=== PATIENT | male | born 1975 | race Caucasian/White ===

== ENCOUNTER → 2016-03-14 | Outpatient (CLI) | payer BC, OTHER | END | disposition home or self-care (01) | LOC: MMGSC 15:22 | PROVIDERS: ATTEND Family Medicine | DX: R30.0 Dysuria (principal); N39.0 Urinary tract infection, site not specified | CPT/HCPCS: 87086 ==

== ENCOUNTER → 2017-03-30 | Outpatient (CLI) | payer OTHER | END | disposition home or self-care (01) | LOC: MMGSC 10:56 | PROVIDERS: ATTEND Family Medicine | DX: J32.9 Chronic sinusitis, unspecified (principal) | CPT/HCPCS: 87070; 87077; 87186 ==

== ENCOUNTER → 2017-12-10 | Outpatient (CLI) | payer BC ==
--- NOTE | 2017-12-10 14:38 | MR ---
EXAMINATION TYPE: MR lumbar spine wo con DATE OF EXAM: 12/10/2017 COMPARISON: prior lumbar mri 10/03/2010 HISTORY: Low back pain TECHNIQUE: Multiplanar, multisequence images of the lumbar spine were acquired. L1-L2: Normal disc appearance without desiccation. No herniation, protrusion or disc bulging. No ca nal stenosis is present. Foramina are patent bilaterally. L2-L3: Normal disc appearance without desiccation. No herniation, protrusion or disc bulging. No ca nal stenosis is present. Foramina are patent bilaterally. L3-L4: Minimal posterior broad-based disc bulge causes only slight anterior mass effect on the thecal sac. There is mild facet arthropathy. No significant central stenosis or foraminal encroachment. L4-L5: There is a central posterior disc herniation causing anterior mass effect on the thecal sac, e xtension posterior to L5 vertebral body towards the left may contact the left L5 nerve root. This res ults in some mild central canal stenosis. Differential extension endplate disc complex encroaches mor e on the left neural foramen. There is some facet arthropathy with hypertrophy ligamentum flavum encr oaching on the posterior lateral thecal sac. L5-S1: Small posterior disc bulge causes mild anterior mass effect on the thecal sac as on prior exam , circumferential extension of endplate disc complex encroaches on the foramina as on prior. There is some facet arthropathy change. Lumbar segments are intact. No paraspinal masses are identified. Conus medullaris has a normal appe arance. There is loss of disc height signal at L4-5 and L5-S1 as on prior. Multilevel spondylosis wi th endplate discogenic marrow signal changes are again seen. IMPRESSION: Large disc herniation L4-5 as described, correlate for left L5 radiculopathy. Configuration is change d somewhat in the interval compared to prior exam. Multilevel facet arthropathy as described, additio nal findings above.
== END | disposition home or self-care (01) ==
LOC: RADMRIMAIN 12:41
PROVIDERS: ATTEND Family Medicine
DX: M48.061 Spinal stenosis, lumbar region without neurogenic claudication (principal); M51.26 Other intervertebral disc displacement, lumbar region; M47.816 Spondylosis without myelopathy or radiculopathy, lumbar region; M46.97 Unspecified inflammatory spondylopathy, lumbosacral region
CPT/HCPCS: 72148

== ENCOUNTER 2017-12-30 13:01 | Emergency (ER) | payer BC ==
[2017-12-30 13:21] VITALS: BP 170/93; PULSE 89; RESP 20; TEMP 98.7
[2017-12-30] MEDS ORDERED: KETOROLAC 60 MG/2 ML VIAL IM STA (14:05)
--- NOTE | 2017-12-30 14:09 | ED ---
Back Pain HPI - General Chief Complaint: Back Pain/Injury Stated Complaint: Lumbar Pain Time Seen by Provider: 12/30/17 13:22 Source: patient, RN notes reviewed Limitations: no limitations - History of Present Illness Initial Comments: 42-year-old male presents emergency Department chief complaint of low back pain , left leg pain. Patient states that he has had chronic back issues and been having worsening symptoms in which she had an MRI 2 weeks ago which showed disc herniation. Patient states he has an appointment with Dr. Dunbar within a week. Patient denies any bowel, bladder incontinence or retention. Denies any saddle anesthesia or lower shunted paresthesias. He states his pain that radiates down his left leg in the lateral anterior surface down into his foot. Patient denies any swelling, discoloration. Patient has no abdominal pain no chest pain, shortness breath, headache or dizziness. Patient has no neck pain. Patient denies any notable weakness. Patient states he does take Lortab and muscle relaxers at home. Patient states he noted that he had some tingling in his left hand finger test but states that resolved this was a few days ago. denies any current symptoms. - Related Data Previous Rx's Medication Instructions Recorded predniSONE 50 mg PO DAILY #5 tab 12/30/17 Allergies Allergy/AdvReac Type Severity Reaction Status Date / Time erythromycin base Allergy Unknown Verified 12/30/17 13:21 Review of Systems ROS Statement: Those systems with pertinent positive or pertinent negative responses have been documented in the HPI. ROS Other: All systems not noted in ROS Statement are negative. Past Medical History Additional Past Medical History / Comment(s): back pain History of Any Multi-Drug Resistant Organisms: None Reported Past Surgical History: Appendectomy Past Psychological History: No Psychological Hx Reported Smoking Status: Never smoker Past Alcohol Use History: None Reported Past Drug Use History: None Reported General Exam Limitations: no limitations General appearance: alert, in no apparent distress Head exam: Present: atraumatic, normocephalic, normal inspection Eye exam: Present: normal appearance, PERRL, EOMI. Absent: scleral icterus, conjunctival injection, periorbital swelling ENT exam: Present: normal exam, normal oropharynx, mucous membranes moist Neck exam: Present: normal inspection, full ROM. Absent: tenderness, meningismus, lymphadenopathy Respiratory exam: Present: normal lung sounds bilaterally. Absent: respiratory distress, wheezes, rales, rhonchi, stridor Cardiovascular Exam: Present: regular rate, normal rhythm, normal heart sounds. Absent: systolic murmur, diastolic murmur, rubs, gallop, clicks GI/Abdominal exam: Present: soft, normal bowel sounds. Absent: distended, tenderness, guarding, rebound, rigid Extremities exam: Present: other (Lower extremity strength equal bilaterally, neurovascular intact equal color equal warmth upper extremity strength equal bilaterally) Back exam: Present: full ROM (Moderate discomfort), tenderness, muscle spasm, paraspinal tenderness, other (Pain with left straight leg raise). Absent: CVA tenderness (R), CVA tenderness (L), vertebral tenderness Neurological exam: Present: alert, oriented X3, CN II-XII intact, reflexes normal. Absent: motor sensory deficit Course Vital Signs 12/30/17 13:19 Temperature 98.7 F Pulse Rate 89 Respiratory 20 Rate Blood Pressure 170/93 O2 Sat by Pulse 99 Oximetry Medical Decision Making - Medical Decision Making 6-year-old male presented for low back pain. Patient has chronic back issues. MRI was reviewed from 2 weeks ago which does show disc herniation with effacement of the thecal sac, left nerve root. Patient symptoms are consistent with lumbar radiculopathy with no neurological deficits no red flag symptoms. We discussed the symptoms and return parameters. Patient has appointment with Dr. Dunbar and return parameters were discussed. Disposition Clinical Impression: Lumbar radiculopathy, Lumbar disc herniation with radiculopathy Disposition: HOME SELF-CARE Condition: Stable Instructions: Acute Low Back Pain (ED) Additional Instructions: Please return to the Emergency Department if symptoms worsen or any other concerns. Prescriptions: predniSONE 50 mg PO DAILY #5 tab Is patient prescribed a controlled substance at d/c from ED?: No Referrals: Julia Neil MD [Primary Care Provider] - 1-2 days Marvin Daniel DO [Doctor of Osteopathic Medicine] - 1-2 days Time of Disposition: 14:08
== END 2017-12-30 14:27 | disposition home or self-care (01) ==
LOC: EC 13:01
DX: M51.16 Intervertebral disc disorders with radiculopathy, lumbar region (principal); Z90.49 Acquired absence of other specified parts of digestive tract; Z88.1 Allergy status to other antibiotic agents
CPT/HCPCS: 99283; 96372; J1885

== ENCOUNTER → 2018-01-18 | Outpatient (CLI) | payer BC ==
[2018-01-18 08:35] LABS: Basophils % (A) 0 %; Eosinophils # (A) 0.1 k/uL (0-0.7); Eosinophils % (A) 2 %; HCT 43.6 % (39.0-53.0); HGB 14.5 gm/dL (13.0-17.5); Lymphocytes # (A) 2.1 k/uL (1.0-4.8); Lymphocytes % (A) 40 %; MCH 31.1 pg (25.0-35.0); MCHC 33.2 g/dL (31.0-37.0); MCV 93.7 fL (80.0-100.0); Mean Platelet Volume 7.1; Monocytes # (A) 0.3 k/uL (0-1.0); Monocytes % (A) 6 %; Neutrophils # (A) 2.5 k/uL (1.3-7.7); Neutrophils % (A) 49 %; Platelet Count 294 k/uL (150-450); RBC 4.65 m/uL (4.30-5.90); RDW 13.6 % (11.5-15.5); WBC 5.2 k/uL (3.8-10.6)
[2018-01-18 08:47] LABS: INR 0.9 (<1.2); Partial Thromboplastin Time 27.2 sec (22.0-30.0)
[2018-01-18 08:56] LABS: Anion Gap 9 mmol/L; Blood Urea Nitrogen 19 mg/dL (9-20); Calcium 9.8 mg/dL (8.4-10.2); Carbon Dioxide 30 mmol/L (22-30); Chloride 102 mmol/L (98-107); Glucose 93 mg/dL (74-99); Potassium 4.4 mmol/L (3.5-5.1); Sodium 141 mmol/L (137-145)
--- NOTE | 2018-01-18 08:59 | XR ---
EXAMINATION TYPE: XR chest 2V DATE OF EXAM: 01/18/2018 COMPARISON: NONE HISTORY: Presurgical evaluation. TECHNIQUE: Frontal and lateral views of the chest are obtained. FINDINGS: There is no focal air space opacity, pleural effusion, or pneumothorax seen. The cardiac silhouette size is within normal limits. The osseous structures are intact. There is slight biapica l pleural thickening. Minimal degenerative changes of the thoracic spine are noted. IMPRESSION: No acute cardiopulmonary process.
[2018-01-18 09:36] LABS: Appearance,Urine Clear (Clear); Bilirubin,Urine Negative (Negative); Blood,Urine Negative (Negative); Color,Urine Yellow; Glucose,Urine (UA) Negative (Negative); Ketones,Urine Negative (Negative); Leukocyte Esterase,Urine Negative (Negative); Nitrite,Urine Negative (Negative); Protein,Urine Negative (Negative); Specific Gravity,Urine 1.022 (1.001-1.035); Urobilinogen,Urine <2.0 mg/dL (<2.0)
== END | disposition home or self-care (01) ==
LOC: LABPAT 07:32
PROVIDERS: ATTEND Orthopaedic Surgery Orthopaedic Surgery of the Spine
DX: Z01.818 Encounter for other preprocedural examination (principal); Z01.812 Encounter for preprocedural laboratory examination; K46.9 Unspecified abdominal hernia without obstruction or gangrene
CPT/HCPCS: 36415; 71046; 80048; 81003; 85025; 85610; 85730; 93005

== ENCOUNTER → 2018-01-30 | Day surgery (SDC) | payer BC ==
[2018-01-22 15:32] VITALS: BMI 23.0
[~2018-01-30] MED LIST: ALPRAZolam 0.5 MG TAB PO PRN; BACITRACIN 50,000 UNIT, POLYMYXIN B 500,000 UNIT in SODIUM CHLORIDE 0.9% IRRIGATIO 1,00... IRRIGATION ONE; BENZOCAINE/MENTHOL LOZENG 1 EACH LOZENGE MUCOUS MEM PRN; CHOLECALCIFEROL 1,000 UNIT TAB PO SCH; DEXAMETHASONE SOD PHOSPHATE 10 MG/ML 1 ML VIAL IV ONE; GLYCOPYRROLATE 0.2 MG/ML 2 ML VIAL ONE; HYDROcodone/APAP 5-325MG 1 EACH TAB PO PRN; HYDROmorphone 0.5 MG/0.5 ML SYRINGE IVP PRN; HYDROmorphone 1 MG/ML 1 ML SYRINGE IVP PRN; IBUPROFEN 400 MG PO PRN; IBUPROFEN 600 MG TAB PO PRN; KETOROLAC 30 MG/ML 1 ML VIAL IVP PRN; LACTATED RINGERS 1,000 ML IV SCH; LIDOCAINE 0.5%-EPI 1:200,000 50 ML VIAL SQ ONE; LIDOCAINE 1% 20 ML VIAL (10MG/ML) FOR IV START INTRADERMA PRN; LIDOCAINE 1% INJ 10MG/ML (20 ML MDV) ONE; MIDAZOLAM 2 MG/2 ML VIAL ONE; NALOXONE 0.4 MG/ML 1 ML VIAL ONE; NEOSTIGMINE 1 MG/ML 10 ML VIAL ONE; ONDANSETRON 4 MG/2 ML VIAL IVP ONE; ONDANSETRON 4 MG/2 ML VIAL IVP PRN; PROPOFOL 10 MG/ML 20 ML VIAL IV ONE; Pre Op ABX Message 1 EACH MISC MISCELLANE ONE; ROCURONIUM BROMIDE 10 MG/ML 10 ML VIAL IV ONE; SCOPOLAMINE 1.5MG/72HR PATCH TRANSDERM ONE; SODIUM CHLORIDE 0.9% 1,000 ML IV SCH; SUCCINYLCHOLINE CHLORIDE 100 MG/5 ML SYR IV ONE; ceFAZolin IN SWFI 2 GM/20 ML SYRINGE IVP ONE; ceFAZolin IN SWFI 2 GM/20 ML SYRINGE IVP SCH; ePHEDrine SULFATE/0.9% NACL/PF 50 MG/5 ML SYRINGE IV ONE; fentaNYL (PF) 50 MCG/ML 2 ML AMP ONE; methylPREDNISolone ACETATE 80 MG/ML 1 ML VIAL INTRAARTIC ONE
--- NOTE | 2018-01-30 09:27 | FL ---
EXAMINATION TYPE: FL guidance operating room, XR lumbar spine 1V DATE OF EXAM: 01/30/2018 CLINICAL HISTORY: Low back pain. Disc herniation. TECHNIQUE: Fluoroscopy. Intraoperative 6 single view lumbar spine. COMPARISON: MRI lumbar spine December 10, 2017. FINDINGS: Fluoroscopic guidance was provided during laminectomy procedure L4-L5 level performed by Ko Daniel. A total of 2 seconds of fluoroscopic time was utilized during the procedure and single spo t fluoroscopic image is acquired. Single image acquired shows posterior hardware L4-L5 level. IMPRESSION: As Above.
--- NOTE | 2018-01-30 09:47 | P.OP ---
Date of Procedure: 01/30/18 Preoperative Diagnosis: Large herniated nucleus pulposis L4 5 with extruded fragment, left lower extremity radiculopathy, left lower extremity weakness, low back pain Postoperative Diagnosis: Same Anesthesia: GETA Pathology: none sent Condition: stable Disposition: PACU Description of Procedure: BRIEF OPERATIVE NOTE Preoperative Diagnosis:Large herniated nucleus pulposis L4 5 with extruded fragment, left lower extremity radiculopathy, left lower extremity weakness, low back pain Postoperative Diagnosis: Same Procedure: Laminectomy and decompression L4 5 Discectomy for decompressionL4 5 Surgeon: Dr. Daniel [employer] Manager: Lavell Devries is present throughout the entire the case persistence during positioning, dissection, exposure, visualization, and all crucial elements of the case as well as closure. Anesthesia: General anesthesia Estimated blood loss:Approximately 20 mL Complications: None apparent Components implanted:None Disposition: To recovery room in good stable condition. OPERATIVE INDICATIONS The patient has been having issues in their lower back and lower extremities. He was found have a large left paracentral disc herniation with extruded fragment at L4 5. This is causing severe stenosis and distortion of the nerve. These findings correlated very well with his low back and left lower extremity radiculopathy with weakness. The patient has been through conservative treatment. is not having any prolonged benefit despite conservative treatment. We discussed various treatment options including surgery, and the patient wishes to proceed with surgery We discussed the risk, patient's alternatives and benefits of surgery including but not limited to, risk of bleeding risk of infection, risk of need for further surgery, risk of decreased, loss of motion, loss of function, nerve damage, paralysis, heart attack, blindness and . OPERATIVE SUMMARY After discussing all the risks, patient alternatives and benefits at length, the patient elected to proceed with surgical intervention, signed informed consent, and presented for their procedure. The patient was seen and examined in the preoperative holding area and the surgical site was marked. The patient was given antibiotics and brought to the operating room. The patient was sedated and intubated by anesthesia in standard fashion. The patient was positioned on to the operating room table in a prone position on the appropriate frame which was well-padded and well molded. We were careful to pad any bony prominences and pressure points. We were careful to maintain the patient's cervical spine and good neutral alignment and position throughout. The patient was prepped and draped in a normal standard fashion. An appropriate timeout and keystone protocol performed. We were able to proceed with the surgery. Fluoroscopy was utilized to establish the appropriate level At L4 5. The local wound area was infiltrated with local anesthetic. An incision was made at the midline longitudinally over the appropriate levels At L4 5 approximately 1-1/2 inches in length. Dissection was taken down subcutaneously to the level of the fascia which was split midline. Dissection was taken over the lamina. Intraoperative fluoroscopy was taken which showed a marker at the appropriate level. With the appropriate level positively confirmed, we were able to proceed with laminectomy At L4 5. The wound was copiously irrigated and suctioned dry as had been done periodically throughout the case. I performed a laminectomy with a combination of curettes and a high- speed bur and Kerrison rongeurs. A small medial facetectomy was performed again further access. A partial foraminotomy was also performed. Portions of the ligamentum flavum were taken down to expose the dura and traversing nerve root. I was able to mobilize the traversing nerve root and gain access to the disc space. Note was made of obvious compression from the disc. there is significant distortion of the traversing nerve root and tension over the root. Protecting the soft tissue structures, a small annulotomy was established. I was able to perform discectomy and remove any extruded disc fragments and any loose fragments from within the disc itself. there are large extruded fragments which were causing severe compression and these were removed which gave excellent relaxation over the nerve root. There is some disc desiccation noted. I tried to preserve the disc annulus that appeared stable. There were no further extruded fragments noted. There is no evidence of dural tear or leak. Good hemostasis maintained. The wound was copiously irrigated and suctioned dry. Good decompression and discectomy was noted. We were able to proceed with closure. The fascia was closed for a watertight closure. The subcuticular tissue was closed with absorbable suture. The wound was cleaned and dried and dressed with the appropriate dressing. The drapes were broken down. The patient was gently rolled back onto their hospital bed being careful to maintain their cervical spine and good neutral alignment and position. They were woken up by anesthesia, extubated, and brought to the recovery room in good stable condition. The patient will be admitted to the hospital for observation and for appropriate postoperative care, medical management and monitoring. he should be able to be discharged home today once he stable from postanesthesia care unit. We will continue to follow them closely about the postoperative course.
[2018-01-30 10:10] VITALS: TEMP 98.7
[2018-01-30 11:04] VITALS: RESP 18
[2018-01-30 12:12] VITALS: BP 132/67; PULSE 78
== END | disposition home or self-care (01) ==
LOC: OR 06:35
PROVIDERS: ATTEND Orthopaedic Surgery Orthopaedic Surgery of the Spine
DX: M51.26 Other intervertebral disc displacement, lumbar region (principal); M48.061 Spinal stenosis, lumbar region without neurogenic claudication; M51.16 Intervertebral disc disorders with radiculopathy, lumbar region; M51.17 Intervertebral disc disorders with radiculopathy, lumbosacral region; Z88.1 Allergy status to other antibiotic agents; G89.29 Other chronic pain; Z79.1 Long term (current) use of non-steroidal anti-inflammatories (NSAID); Z79.899 Other long term (current) drug therapy
CPT/HCPCS: 72020; 63030; J2250; J1040; J2310; J2710; J2405; J2001; J3010; J0330; J2704; J0690; 86850; 86900; 86901

== ENCOUNTER 2018-07-01 06:23 | Emergency (ER) | payer BC ==
[2018-07-01 06:38] VITALS: RESP 18
[2018-07-01] MEDS ORDERED: ACETAMINOPHEN TAB 325 MG TAB PO STA (07:06)
--- NOTE | 2018-07-01 07:10 | ED ---
URI HPI - General Chief Complaint: Upper Respiratory Infection Stated Complaint: LAVERNE Time Seen by Provider: 07/01/18 07:00 Source: patient, RN notes reviewed Mode of arrival: ambulatory Limitations: no limitations - History of Present Illness Initial Comments: This a 42-year-old male presents emergency Department with chief complaint of cough congestion for 70 days. Patient states worse last 3-4 days. Patient's concerned about possible pneumonia this is a recurrent pneumonia. He is a nonsmoker. Patient states this family members have all been sick for getting better but states that he seemed to worsen recently. Patient denies any chest pain. He states he has slight shortness of breath with his cough which is productive of phlegm. Patient denies any known fever or chills though he does have a temp of 99.7 currently. Patient denies any ear pain, sore throat. He does admit to mild sinus congestion. Patient denies any relief with over-the- counter medications. Patient states that his symptoms are getting better. Denies any neck pain or neck stiffness - Related Data Home Medications Medication Instructions Recorded Confirmed ALPRAZolam [Xanax] 0.5 mg PO DAILY PRN 01/22/18 07/01/18 Previous Rx's Medication Instructions Recorded Levofloxacin [Levaquin] 500 mg PO DAILY #7 tab 07/01/18 Allergies Allergy/AdvReac Type Severity Reaction Status Date / Time erythromycin base AdvReac Nausea Verified 07/01/18 07:28 Review of Systems ROS Statement: Those systems with pertinent positive or pertinent negative responses have been documented in the HPI. ROS Other: All systems not noted in ROS Statement are negative. Past Medical History Past Medical History: GERD/Reflux Additional Past Medical History / Comment(s): PAST HX OF PALPITATIONS, BACK PAIN. History of Any Multi-Drug Resistant Organisms: None Reported Past Surgical History: Appendectomy, Back Surgery Past Anesthesia/Blood Transfusion Reactions: No Reported Reaction Past Psychological History: Anxiety Smoking Status: Never smoker Past Alcohol Use History: None Reported Past Drug Use History: None Reported - Past Family History Mother Family Medical History: No Reported History General Exam Limitations: no limitations General appearance: alert, in no apparent distress Head exam: Present: atraumatic, normocephalic, normal inspection Eye exam: Present: normal appearance, PERRL, EOMI. Absent: scleral icterus, conjunctival injection, periorbital swelling ENT exam: Present: normal exam, normal oropharynx, mucous membranes moist Neck exam: Present: normal inspection, full ROM. Absent: tenderness, meningismus, lymphadenopathy Respiratory exam: Present: rhonchi (Faint). Absent: normal lung sounds bilat erally, respiratory distress, wheezes, rales, stridor Cardiovascular Exam: Present: normal rhythm, tachycardia, normal heart sounds. Absent: systolic murmur, diastolic murmur, rubs, gallop, clicks Neurological exam: Present: alert Skin exam: Present: warm, dry, intact, normal color. Absent: rash Course Vital Signs 07/01/18 07/01/18 06:36 07:25 Temperature 99.7 F H Pulse Rate 109 H 90 Respiratory 18 18 Rate Blood Pressure 127/72 135/81 O2 Sat by Pulse 96 98 Oximetry Medical Decision Making - Medical Decision Making 6-year-old male presented for cough congestion fever. Patient she is x-ray show s possible COPD changes, no lobar pneumonia. Symptoms more consistent with tracheobronchitis. Patient will be given Rocephin emergency department will be discharged on Levaquin secondary to erythromycin ALLERGY. Disposition Clinical Impression: Tracheobronchitis Disposition: HOME SELF-CARE Condition: Stable Instructions (If sedation given, give patient instructions): Acute Bronchitis (ED) Additional Instructions: Please return to the Emergency Department if symptoms worsen or any other concerns. Prescriptions: Levofloxacin [Levaquin] 500 mg PO DAILY #7 tab Is patient prescribed a controlled substance at d/c from ED?: No Referrals: Julia Neil MD [Primary Care Provider] - 1-2 days Time of Disposition: 07:37
--- NOTE | 2018-07-01 07:13 | XR ---
EXAMINATION TYPE: XR chest 2V DATE OF EXAM: 07/01/2018 COMPARISON: 01/18/2018 TECHNIQUE: PA and lateral views submitted. HISTORY: Pain FINDINGS: The lungs are clear and there is no pneumothorax, pleural effusion, or focal pneumonia. Apical pleu ral thickening. Hyperinflation suggests COPD. Hypertrophic change of the spine. IMPRESSION: 1. Correlate for COPD.
[2018-07-01 07:26] VITALS: BP 135/81; PULSE 90
[2018-07-01] MEDS ORDERED: cefTRIAXone 1,000 MG VIAL (IM USE) IM STA (07:35)
[2018-07-01 07:56] VITALS: TEMP 98.5
== END 2018-07-01 07:55 | disposition home or self-care (01) ==
LOC: EC 06:23
DX: J40 Bronchitis, not specified as acute or chronic (principal); Z88.1 Allergy status to other antibiotic agents
CPT/HCPCS: 99284; 96372; 71046; J0696

== ENCOUNTER 2019-12-21 22:56 | Emergency (ER) | payer BC ==
--- NOTE | 2019-12-21 23:06 | ED ---
Chest Pain HPI - General Chief Complaint: Chest Pain Stated Complaint: Chest pain Time Seen by Provider: 12/21/19 23:05 Source: patient Mode of arrival: wheelchair Limitations: no limitations - History of Present Illness Initial Comments: Brandon is a relatively healthy 44-year-old male who presents to the ER today for evaluation of 2 weeks of palpitations, shortness of breath in the development of left-sided chest and arm pain. Patient describes pain from the bottom of the ribs all the way up in the midaxillary line to the arm. Patient also reports he's had palpitations which she's experienced intermittently in the past but they've been persistent for 2 weeks. He feels short of breath with any exertion. He does have a family history of A. fib but no family history of other heart disease that he is aware of. No family history of DVT PE or clotting disorder. He has no history of DVT or PE. No recent immobilization or long distance travel. Patient is concerned he may be having A. fib. - Related Data Home Medications Medication Instructions Recorded Confirmed ALPRAZolam [Xanax] 0.5 mg PO DAILY PRN 01/22/18 07/01/18 Previous Rx's Medication Instructions Recorded Levofloxacin [Levaquin] 500 mg PO DAILY #7 tab 07/01/18 Allergies Allergy/AdvReac Type Severity Reaction Status Date / Time erythromycin base AdvReac Nausea Verified 12/21/19 23:04 Review of Systems ROS Statement: Those systems with pertinent positive or pertinent negative responses have been documented in the HPI. ROS Other: All systems not noted in ROS Statement are negative. EKG Findings - EKG Comments: EKG Findings:: EKG was obtained due to complaint of palpitations and chest pain EKG was obtained at 2322, rate is 79 rhythm is sinus normal axis, normal intervals, [place] 1:30 QRS 96 QTC 4:[address] elevations or depressions no evidence of ischemia or infarction or arrhythmia Past Medical History Past Medical History: GERD/Reflux Additional Past Medical History / Comment(s): PAST HX OF PALPITATIONS, BACK PAIN. History of Any Multi-Drug Resistant Organisms: None Reported Past Surgical History: Appendectomy, Back Surgery Past Anesthesia/Blood Transfusion Reactions: No Reported Reaction Past Psychological History: Anxiety, Depression Smoking Status: Never smoker Past Alcohol Use History: None Reported Past Drug Use History: None Reported - Past Family History Mother Family Medical History: No Reported History General Exam - General Exam Comments Initial Comments: Physical Exam GENERAL: Patient is well-developed and well-nourished Patient is nontoxic and well-hydrated and is in no distress. HENT: Normocephalic, Atraumatic. EYES: PERRL, EOMI PULMONARY: Unlabored respirations. No audible rales rhonchi or wheezing was noted. CARDIOVASCULAR: There is a regular rate and rhythm without any murmurs gallops or rubs. ABDOMEN: Soft and nontender with normal bowel sounds. SKIN: Skin is clear with no lesions or rashes and otherwise unremarkable. : Deferred NEUROLOGIC: Patient is alert and oriented x3. Moving all extremities spontaneously MUSCULOSKELETAL: Normal extremities with adequate strength and full range of motion. No lower extremity swelling or edema. No calf tenderness. PSYCHIATRIC: Normal psychiatric evaluation. Limitations: no limitations Course Vital Signs 12/21/19 23:01 Temperature 98.7 F Pulse Rate 88 Respiratory 18 Rate Blood Pressure 148/85 O2 Sat by Pulse 100 Oximetry Chest Pain [facility] patient was seen and evaluated history is obtained from patient Patient with 2 weeks of palpitations intermittent shortness of breath today he had some left-sided pleuritic chest pain and cramping in his left arm which seemed to be associated with some hyperventilation excellent a cardiac workup was completed, EKG was nonischemic Chest x-ray was clear Labs including a troponin and d-dimer were unremarkable Results were discussed the patient heart score is 0 at this time there is No evidence of ACS, pericarditis, myocarditis, pulmonary embolism, pneumothorax, pneumonia, Zoster, or esophageal perforation. Historically not abrupt in onset, tearing or ripping, pulses symmetric, no evidence of aortic dissection. patient is low risk for cardiac etiology of chest pain and is stable for discharge home with outpatient follow-up at this time patient's comfortable with this plan. Disposition Clinical Impression: Atypical chest pain, Heart palpitations Disposition: HOME SELF-CARE Condition: Stable Additional Instructions: As we discussed your labs and chest xray are normal There is no evidence of pneumonia, collapsed lung, blood clot, heart attack or afib Make sure you are drinking plenty of fluids, avoid caffeine or stimulants Follow up with your regular doctor for re-evaluation later this week. Is patient prescribed a controlled substance at d/c from ED?: No Referrals: Julia Neil MD [Primary Care Provider] - 1-2 days
--- NOTE | 2019-12-21 23:20 | XR ---
EXAMINATION TYPE: XR chest 2V DATE OF EXAM: 12/21/2019 COMPARISON: 07/01/2018 HISTORY: Chest pain TECHNIQUE: FINDINGS: Heart and mediastinum are normal. Lungs are clear. Diaphragm is normal. Bony thorax appears normal. Pulmonary vascularity is normal. IMPRESSION: Normal chest. No change.
[2019-12-21 23:36] LABS: Basophils % (A) 1 %; Eosinophils # (A) 0.1 k/uL (0-0.7); Eosinophils % (A) 2 %; HCT 43.4 % (39.0-53.0); HGB 14.7 gm/dL (13.0-17.5); Lymphocytes # (A) 1.6 k/uL (1.0-4.8); Lymphocytes % (A) 29 %; MCH 30.9 pg (25.0-35.0); MCHC 33.8 g/dL (31.0-37.0); MCV 91.6 fL (80.0-100.0); Mean Platelet Volume 6.9; Monocytes # (A) 0.3 k/uL (0-1.0); Monocytes % (A) 5 %; Neutrophils # (A) 3.5 k/uL (1.3-7.7); Neutrophils % (A) 62 %; Platelet Count 273 k/uL (150-450); RBC 4.74 m/uL (4.30-5.90); WBC 5.6 k/uL (3.8-10.6)
[2019-12-21 23:45] LABS: ALT 21 U/L (4-49); AST 26 U/L (17-59); African American GFR (CKD) >90 (>60 ml/min/1.73 sqM); Albumin 4.6 g/dL (3.5-5.0); Alkaline Phosphatase 62 U/L (38-126); Anion Gap 9 mmol/L; Blood Urea Nitrogen 17 mg/dL (9-20); Calcium 9.9 mg/dL (8.4-10.2); Carbon Dioxide 25 mmol/L (22-30); Chloride 104 mmol/L (98-107); Glucose 109 mg/dL (74-99); Lipase 114 U/L (23-300); Magnesium 1.9 mg/dL (1.6-2.3); Non-African American GFR(CKD) >90 (>60 ml/min/1.73 sqM); Potassium 3.9 mmol/L (3.5-5.1); Sodium 138 mmol/L (137-145); Total Bilirubin 0.8 mg/dL (0.2-1.3); Total Protein 7.7 g/dL (6.3-8.2)
[2019-12-21 23:49] LABS: D-Dimer 0.26 mg/L FEU (<0.60); Partial Thromboplastin Time 25.9 sec (22.0-30.0); Prothrombin Time 10.2 sec (9.0-12.0)
[2019-12-22 00:46] VITALS: BP 118/70; PULSE 76; RESP 16; TEMP 98.3
== END 2019-12-22 00:46 | disposition home or self-care (01) ==
LOC: EC 22:56
DX: R07.89 Other chest pain (principal); R00.2 Palpitations; R06.02 Shortness of breath; R06.4 Hyperventilation; Z88.1 Allergy status to other antibiotic agents
CPT/HCPCS: 36415; 71046; 80053; 83690; 83735; 84484; 85025; 85379; 85610; 85730; 93005; 99285

== ENCOUNTER → 2020-05-13 | Outpatient (CLI) | payer BC | END | disposition home or self-care (01) | LOC: RADECHMAIN 12:45 | PROVIDERS: ATTEND Family Medicine | DX: R00.2 Palpitations (principal) | CPT/HCPCS: 93225; 93226 ==

== ENCOUNTER → 2021-06-14 | Outpatient (CLI) | payer BC ==
--- NOTE | 2021-06-15 08:02 | CT ---
EXAMINATION TYPE: CT abdomen pelvis wo con DATE OF EXAM: 06/14/2021 COMPARISON: None HISTORY: lower abdominal pain CT DLP: 299.20 mGycm Examination of the solid and hollow viscera is limited given the lack of contrast. GI contrast was ut ilized. FINDINGS: LUNG BASES: No evidence for nodule. No evidence for infiltrate. LIVER/GB: The gallbladder is unremarkable. No space-occupying hepatic lesion. PANCREAS: No pancreatic mass identified. No inflammatory process seen. SPLEEN: No evidence for splenomegaly. No intrasplenic lesions seen. ADRENALS: No adrenal nodules identified. No evidence for thickening. KIDNEYS: No evidence for renal mass. No nephrolithiasis. No hydronephrosis. BOWEL: Appendix has a normal appearance. No evidence of bowel obstruction. No inflammatory process. Lymph nodes: No evidence for adenopathy greater than 1 cm. Abdominal aorta: Atheromatous changes seen. No evidence for aneurysm. Genital organs: No significant abnormality. Other: No significant abnormality. IMPRESSION: NO SIGNIFICANT ABNORMALITY TO ACCOUNT FOR THE PATIENT'S SYMPTOMS.
== END | disposition home or self-care (01) ==
LOC: RADCTMAIN 15:17
PROVIDERS: ATTEND Family Medicine
DX: R10.30 Lower abdominal pain, unspecified (principal)
CPT/HCPCS: 74176

== ENCOUNTER 2022-10-26 02:33 | Emergency (ER) | payer BC ==
[2022-10-26 03:10] LABS: Appearance,Urine Clear (Clear); Bilirubin,Urine Negative (Negative); Blood,Urine Negative (Negative); Color,Urine Colorless; Glucose,Urine (UA) Negative (Negative); Ketones,Urine Negative (Negative); Leukocyte Esterase,Urine Negative (Negative); Nitrite,Urine Negative (Negative); PH, Urine 6.5 (5.0-8.0); Protein,Urine Negative (Negative); Specific Gravity,Urine 1.006 (1.001-1.035); Urobilinogen,Urine <2.0 mg/dL (<2.0)
--- NOTE | 2022-10-26 03:10 | ED ---
Abdominal Pain HPI - General Source: patient Mode of arrival: ambulatory Limitations: no limitations <Anitha Xiao - Last Filed: 10/26/22 03:09> <Cheo Carey - Last Filed: 10/26/22 07:19> - General Chief Complaint: Abdominal Pain Stated Complaint: Abd Pain Time Seen by Provider: 10/26/22 03:09 - History of Present Illness Initial Comments: 47-year-old male presenting with chief complaint of lower abdominal pain ongoing for 3 days. Admits to dysuria and diarrhea. Also admits to right-sided flank pain. (Anitha Xiao) Dictation was produced using [employer] dictation software. please excuse any grammatical, word or spelling errors. Chief Complaint: 47-year-old male presents with abdominal pain and diarrhea History of Present Illness: She is a 47-year-old male presents emergency Department with abdominal pain and diarrhea. Patient has history of UTIs in the past. He states that the pain is his lower back and suprapubic area. He's been having this for months. No studies processes a specialist however has not done so yet. The ROS documented in this emergency department record has been reviewed and confirmed by me. Those systems with pertinent positive or negative responses have been documented in the HPI. All other systems are other negative and/or noncontributory. (Cheo Carey) - Related Data Home Medications Medication Instructions Recorded Confirmed ALPRAZolam [Xanax] 0.5 mg PO DAILY PRN 01/22/18 07/01/18 Previous Rx's Medication Instructions Recorded Levofloxacin [Levaquin] 500 mg PO DAILY #7 tab 07/01/18 Allergies Allergy/AdvReac Type Severity Reaction Status Date / Time erythromycin base AdvReac Nausea Verified 10/26/22 02:44 Review of Systems ROS Other: All systems not noted in ROS Statement are negative. <Anitha Xiao - Last Filed: 10/26/22 03:09> ROS Other: All systems not noted in ROS Statement are negative. <Cheo Carey - Last Filed: 10/26/22 07:19> ROS Statement: Those systems with pertinent positive or pertinent negative responses have been documented in the HPI. Past Medical History Past Medical History: GERD/Reflux Additional Past Medical History / Comment(s): PAST HX OF PALPITATIONS, BACK PAIN. History of Any Multi-Drug Resistant Organisms: None Reported Past Surgical History: Appendectomy, Back Surgery Past Anesthesia/Blood Transfusion Reactions: No Reported Reaction Past Psychological History: Anxiety, Depression Smoking Status: Never smoker Past Alcohol Use History: None Reported Past Drug Use History: None Reported - Past Family History Mother Family Medical History: No Reported History <Anitha Xiao - Last Filed: 10/26/22 03:09> General Exam Limitations: no limitations <Anitha Xiao - Last Filed: 10/26/22 03:09> <Cheo Carey - Last Filed: 10/26/22 07:19> - General Exam Comments Initial Comments: Visual Physical Exam Vital signs reviewed General: Well-appearing, nontoxic, no acute distress. Head: Normocephalic, atraumatic Eyes: PERRLA, EOMI ENT: Airway patent Chest: Nonlabored breathing Skin: No visual rash, normal skin tone Neuro: Alert and oriented 3 Musculoskeletal: No gross abnormalities (Anitha Xiao) PHYSICAL EXAM: General Impression: Alert and oriented x3, not in acute distress HEENT: Normocephalic atraumatic, extra-ocular movements intact, pupils equal and reactive to light bilaterally, mucous membranes moist. Cardiovascular: Heart regular rate and rhythm Chest: Able to complete full sentences, no retractions, no tachypnea Abdomen: abdomen soft, non-tender, non-distended, no organomegaly Musculoskeletal: Pulses present and equal in all extremities, no peripheral edema Motor: no focal deficits noted Neurological: CN II-XII grossly intact, no focal motor or sensory deficits noted Skin: Intact with no visualized rashes Psych: Normal affect and mood (Cheo Carey) Course Vital Signs 10/26/22 10/26/22 02:44 06:53 Temperature 98.1 F 98 F Pulse Rate 82 72 Respiratory 18 16 Rate Blood Pressure 134/98 131/87 O2 Sat by Pulse 98 97 Oximetry Medical Decision Making - Lab Data Result diagrams: 10/26/22 02:54 10/26/22 02:54 <Cheo Carey - Last Filed: 10/26/22 07:19> - Medical Decision Making Was pt. sent in by a medical professional or institution (Dr., PA, WEDDING DAY COORDINATOR, urgent care, hospital, or penitentiary...) When possible be specific @ -No Did you speak to anyone other than the patient for history (EMS, parent, family, police, friend...)? What history was obtained from this source @ -No Did you review nursing and triage notes (agree or disagree)? Why? @ -I reviewed and agree with nursing and triage notes Were old charts reviewed (outside hosp., previous admission, EMS record, old EKG, old radiological studies, urgent care reports/EKG's, penitentiary records)? Report findings @ -No old charts were reviewed Differential Diagnosis (chest pain, altered mental status, abdominal pain women, abdominal pain men, vaginal bleeding, musculoskeletal, weakness, fever, dyspnea, syncope, headache, dizziness, GI bleed, back pain, seizure, CVA, palpatations, mental health)? @ -Differential Abdominal Pain Men: Appendicitis, cholecystitis, diverticulosis, ischemic bowel, pancreatitis, hepatitis, UTI, gastroenteritis, AAA, incarcerated hernia, bowel obstruction, constipation, inflammatory bowel, hepatitis, peptic ulcer disease, splenic infarction, perforated viscus, testicular torsion, this is not meant to be an all-inclusive list EKG interpreted by me (3pts min.). @ -None done X-rays interpreted by me (1pt min.). @ -None done CT interpreted by me (1pt min.). @ -Bladder wall thickening on CT abdomen and pelvis U/S interpreted by me (1pt. min.). @ -None done What testing was considered but not performed or refused? (CT, X-rays, U/S, labs)? Why? @ -None What meds were considered but not given or refused? Why? @ -None Did you discuss the management of the patient with other professionals (professionals i.e. CONNIE Vizcaino, WEDDING DAY COORDINATOR, lab, RT, psych nurse, director social service, black top paver operator, teacher, hospital chief executive officer, employment evaluator/case manager)? Give summary @ -No Was smoking cessation discussed for >3mins.? @ -No Was critical care preformed (if so, how long)? @ -No Were there social determinants of health that impacted care today? How? (Homelessness, low income, unemployed, alcoholism, drug addiction, transportation, low edu. Level, literacy, decrease access to med. care, fpc, rehab)? @ -No Was there de-escalation of care discussed even if they declined (Discuss DNR or withdrawal of care, Hospice)? DNR status @ -No What co-morbidities impacted this encounter? (DM, HTN, Smoking, COPD, CAD, Ca ncer, CVA, ARF, Chemo, Hep., AIDS, mental health diagnosis, sleep apnea, morbid obesity)? @ -None Was patient admitted / discharged? Hospital course, mention meds given and route, prescriptions, significant lab abnormalities, going to OR and other pertinent info. @ -32 yOld male with acute on chronic symptoms of diarrhea and suprapubic pain. Vital signs stable. Laboratory evaluation unremarkable. Urinalysis negative. Computed tomography scan read by radiology shows bladder wall thickening. Patient given referral to urology and GI Undiagnosed new problem with uncertain prognosis? @ -No Drug Therapy requiring intensive monitoring for toxicity (Heparin, Nitro, Insulin, Cardizem)? @ -No Were any procedures done? @ -No Diagnosis/symptom? Acute, or Chronic, or Acute on Chronic? Uncomplicated (without systemic symptoms) or Complicated (systemic symptoms)? @ -Subacute abdominal pain, no obvious source Side effects of treatment? @ -No Exacerbation, Progression, or Severe Exacerbation? @ -No Poses a threat to life or bodily function? How? (Chest pain, [place], [place], pneumonia, PE, COPD, DKA, ARF, appy, cholecystitis, CVA, Diverticulitis, Homicidal, Suicidal, threat to staff... and all critical care pts) @ -yes (Cheo Carey) - Lab Data Lab Results 10/26/22 10/26/22 10/26/22 Range/Units 02:54 02:54 03:04 WBC 6.3 (3.8-10.6) k/uL RBC 4.83 (4.30-5.90) m/uL Hgb 15.2 (13.0-17.5) gm/dL Hct 45.6 (39.0-53.0) % MCV 94.3 (80.0-100.0) fL MCH 31.4 (25.0-35.0) pg MCHC 33.3 (31.0-37.0) g/dL RDW 13.2 (11.5-15.5) % Plt Count 266 (150-450) k/uL MPV 7.8 Neutrophils % 55 % Lymphocytes % 35 % Monocytes % 6 % Eosinophils % 2 % Basophils % 0 % Neutrophils # 3.5 (1.3-7.7) k/uL Lymphocytes # 2.2 (1.0-4.8) k/uL Monocytes # 0.4 (0-1.0) k/uL Eosinophils # 0.2 (0-0.7) k/uL Basophils # 0.0 (0-0.2) k/uL Sodium 140 (137-145) mmol/L Potassium 4.6 (3.5-5.1) mmol/L Chloride 103 (98-107) mmol/L Carbon Dioxide 28 (22-30) mmol/L Anion Gap 9 mmol/L BUN 10 (9-20) mg/dL Creatinine 0.87 (0.66-1.25) mg/dL Est GFR (CKD-EPI)AfAm >90 (>60 ml/min/1.73 sqM) Est GFR (CKD-EPI)NonAf >90 (>60 ml/min/1.73 sqM) Glucose 100 H (74-99) mg/dL Calcium 10.0 (8.4-10.2) mg/dL Total Bilirubin 0.9 (0.2-1.3) mg/dL AST 27 (17-59) U/L ALT 24 (4-49) U/L Alkaline Phosphatase 59 (38-126) U/L Total Protein 8.2 (6.3-8.2) g/dL Albumin 4.7 (3.5-5.0) g/dL Amylase 83 (30-110) U/L Lipase 76 (23-300) U/L Urine Color Colorless Urine Appearance Clear (Clear) Urine pH 6.5 (5.0-8.0) Ur Specific [place] 1.006 (1.001-1.035) Urine Protein Negative (Negative) Urine Glucose (UA) Negative (Negative) Urine Ketones Negative (Negative) Urine Blood Negative (Negative) Urine Nitrite Negative (Negative) Urine Bilirubin Negative (Negative) Urine Urobilinogen <2.0 (<2.0) mg/dL Ur Leukocyte Esterase Negative (Negative) Disposition <Anitha Xaio - Last Filed: 10/26/22 03:09> Is patient prescribed a controlled substance at d/c from ED?: No Time of Disposition: 07:19 <Cheo Carey - Last Filed: 10/26/22 07:19> Clinical Impression: Abdominal pain Disposition: HOME SELF-CARE Condition: Good Instructions (If sedation given, give patient instructions): Abdominal Pain (ED) Referrals: César Ricketts MD [STAFF PHYSICIAN] - 1-2 days Fabiola Santana MD [STAFF PHYSICIAN] - 1-2 days
[2022-10-26 03:23] LABS: Basophils % (A) 0 %; Eosinophils # (A) 0.2 k/uL (0-0.7); Eosinophils % (A) 2 %; HCT 45.6 % (39.0-53.0); HGB 15.2 gm/dL (13.0-17.5); Lymphocytes # (A) 2.2 k/uL (1.0-4.8); Lymphocytes % (A) 35 %; MCH 31.4 pg (25.0-35.0); MCHC 33.3 g/dL (31.0-37.0); MCV 94.3 fL (80.0-100.0); Mean Platelet Volume 7.8; Monocytes # (A) 0.4 k/uL (0-1.0); Monocytes % (A) 6 %; Neutrophils # (A) 3.5 k/uL (1.3-7.7); Neutrophils % (A) 55 %; Platelet Count 266 k/uL (150-450); RBC 4.83 m/uL (4.30-5.90); RDW 13.2 % (11.5-15.5); WBC 6.3 k/uL (3.8-10.6)
[2022-10-26 03:50] LABS: ALT 24 U/L (4-49); AST 27 U/L (17-59); African American GFR (CKD) >90 (>60 ml/min/1.73 sqM); Albumin 4.7 g/dL (3.5-5.0); Alkaline Phosphatase 59 U/L (38-126); Amylase 83 U/L (30-110); Anion Gap 9 mmol/L; Blood Urea Nitrogen 10 mg/dL (9-20); Carbon Dioxide 28 mmol/L (22-30); Chloride 103 mmol/L (98-107); Glucose 100 mg/dL (74-99); Lipase 76 U/L (23-300); Non-African American GFR(CKD) >90 (>60 ml/min/1.73 sqM); Potassium 4.6 mmol/L (3.5-5.1); Sodium 140 mmol/L (137-145); Total Bilirubin 0.9 mg/dL (0.2-1.3); Total Protein 8.2 g/dL (6.3-8.2)
--- NOTE | 2022-10-26 06:26 | CT ---
EXAM: CT Abdomen and Pelvis Without Intravenous Contrast CLINICAL HISTORY: ITS.REASON CT Reason: R sided flank pain TECHNIQUE: Axial computed tomography images of the abdomen and pelvis without intravenous contrast. CTDI is 8.1 mGy and DLP is 438.2 mGy-cm. This CT exam was performed using one or more of the following dose reduction techniques: automated exposure control, adjustment of the mA and/or kV according to patient size, and/or use of iterative reconstruction technique. COMPARISON: No relevant prior studies available. FINDINGS: Limitations: Limited evaluation in the absence of contrast. Lung bases: Unremarkable. No mass. No consolidation. ABDOMEN: Liver: Unremarkable. Gallbladder and bile ducts: Unremarkable. No calcified stones. No ductal dilation. Pancreas: Unremarkable. No ductal dilation. Spleen: Unremarkable. No splenomegaly. Adrenals: Unremarkable. No mass. Kidneys and ureters: No evidence of radiopaque renal calculi or signs of collecting system dilatation. Stomach and bowel: No evidence of bowel obstruction. Colonic diverticulosis. No evidence of diverticulitis. PELVIS: Appendix: Appendectomy changes. Bladder: Bladder wall thickening, out of proportion to degree of underdistention, with adjacent perivesicular stranding. Findings are favored to relate to cystitis. Consider correlation with laboratory values. No stones. Reproductive: Unremarkable as visualized. ABDOMEN and PELVIS: Intraperitoneal space: Unremarkable. No free air. No significant fluid collection. Bones/joints: Degenerative changes in the spine. No acute fracture. No dislocation. Soft tissues: Midline fat-containing umbilical hernia. Vasculature: Unremarkable. No abdominal aortic aneurysm. Lymph nodes: Unremarkable. No enlarged lymph nodes. IMPRESSION: 1. No evidence of radiopaque renal calculi or signs of collecting system dilatation. 2. Bladder wall thickening, out of proportion to degree of underdistention, with adjacent perivesicular stranding. Findings are favored to relate to cystitis. Consider correlation with laboratory values. 3. No other acute findings. 4. Incidental findings as described.
[2022-10-26 15:53] VITALS: BP 131/87; PULSE 72; RESP 16; TEMP 98
== END 2022-10-26 07:31 | disposition home or self-care (01) ==
LOC: EC 02:33
DX: R10.30 Lower abdominal pain, unspecified (principal); F41.9 Anxiety disorder, unspecified; F32.A Depression, unspecified; Z90.49 Acquired absence of other specified parts of digestive tract; Z79.899 Other long term (current) drug therapy; Z88.1 Allergy status to other antibiotic agents
CPT/HCPCS: 36415; 74176; 80053; 81003; 82150; 83690; 85025; 99284

== ENCOUNTER 2022-11-15 08:44 | Day surgery (SDC) | payer BC ==
[2022-11-10 15:47] VITALS: BMI 21.7
[2022-11-15 09:22] VITALS: RESP 16; TEMP 97.6
[2022-11-15] MEDS: LACTATED RINGERS 1,000 ML IV SCH ×2 (09:22→10:18)
[2022-11-15] MEDS ORDERED: PROPOFOL 10 MG/ML 20 ML VIAL IV ONE (10:20)
--- NOTE | 2022-11-15 10:37 | P.PCN ---
Date of Procedure: 11/15/22 Procedure(s) Performed: BRIEF HISTORY: Patient is a 47-year-old pleasant white male scheduled for an elective colonoscopy as a part of evaluation of lower abdominal pain and diarrhea for the last 1 year duration. PROCEDURE PERFORMED: Colonoscopy with random biopsies. PREOPERATIVE DIAGNOSIS: Lower abdominal pain and chronic diarrhea of 1 year duration. IV sedation per Anesthesia. PROCEDURE: After informed consent was obtained, the patient, was brought into the endoscopy unit. IV sedation was administered by Anesthesia under continuous monitoring. Digital rectal examination was normal. Initially the Olympus CF-160 flexible video colonoscope was then inserted in the rectum, gradually advanced i nto the cecum without any difficulty. Careful examination was performed as the scope was gradually being withdrawn. Ileocecal valve and the appendiceal orifice were visualized and appeared normal. Prep was excellent. Terminal ileum was intubated and 20 cm visualized and appeared normal. Mucosa of the cecum, ascending colon, transverse colon, descending colon, sigmoid colon, and rectum appeared normal. Random biopsies were done from ascending and descending colon to rule out microscopic/collagenous colitis. Scattered sigmoid diverticulosis. Retroflexion was performed in the rectum and no lesions were seen. The patient tolerated the procedure well. IMPRESSION: Normal-appearing colon from rectum to cecum with no evidence of colorectal neoplasia. Scattered sigmoid diverticula RECOMMENDATIONS: Findings of this examination were discussed with the patient as well as his family.. He was advised to follow with the biopsy results. Continue with dicyclomine as needed and follow up in office in 3-4 weeks
[2022-11-15 10:57] VITALS: BP 111/66; PULSE 65
== END 2022-11-15 11:48 | disposition home or self-care (01) ==
LOC: ORWHC2ENDO 08:44
PROVIDERS: ATTEND Internal Medicine Gastroenterology
DX: K57.30 Diverticulosis of large intestine without perforation or abscess without bleeding (principal); J45.909 Unspecified asthma, uncomplicated; F41.9 Anxiety disorder, unspecified; F32.A Depression, unspecified; Z88.1 Allergy status to other antibiotic agents; Z79.51 Long term (current) use of inhaled steroids; Z79.891 Long term (current) use of opiate analgesic; Z98.890 Other specified postprocedural states; Z90.49 Acquired absence of other specified parts of digestive tract; Z79.899 Other long term (current) drug therapy
CPT/HCPCS: 88305; 45380; J2704